=== PATIENT | female | born 1950 | race Asian ===

== ENCOUNTER 2024-01-31 06:26 | Day surgery (SDC) | payer OTHER ==
[~2024-01-31] VITALS: Ht 162.6 cm; Wt 72.7 kg
[2024-01-31] MEDS ORDERED: BENZOCAINE 20% 50 MCG/SPRAY 57 GM TP ONE (06:27)
[2024-01-31] MEDS ORDERED: LIDOCAINE 2% 11 ML JELLY TP ONE (06:27)
[2024-01-31] MEDS ORDERED: ALBUTEROL SULFATE 2.5 MG/0.5 ML NEB SOLUTION NEB ONE (06:27)
[2024-01-31] MEDS ORDERED: LIDOCAINE 4% 50 ML SOLUTION TP ONE (06:27)
[2024-01-31] MEDS ORDERED: SODIUM CHLORIDE 0.9% 1,000 ML IV ONE (07:00)
[2024-01-31] MEDS ORDERED: EPINEPHrine 1:10,000 [1 MG/10 ML] SYRINGE ONE (07:44)
[2024-01-31] MEDS ORDERED: FLUMAZENIL 0.1 MG/ML 5 ML VIAL IVP ONE (07:45)
[2024-01-31] MEDS ORDERED: DiphenhydrAMINE HCL 50 MG/ML VIAL ONE (07:45)
[2024-01-31] MEDS ORDERED: NALOXONE HCL 0.4 MG/ML VIAL ONE (07:45)
[2024-01-31] MEDS ORDERED: SODIUM TETRADECYL SULFATE 3% 60 MG/2 ML VIAL IVP ONE (07:45)
[2024-01-31] MEDS ORDERED: ATROPINE SULFATE 0.1 MG/ML 10 ML SYRINGE IVP ONE (07:45)
[2024-01-31] MEDS ORDERED: MIDAZOLAM HCL 2 MG/2 ML VIAL ONE (07:46)
[2024-01-31] MEDS ORDERED: FentaNYL CITRATE PF 100 MCG/2 ML VIAL ONE (07:46)
[2024-01-31] MEDS: SODIUM CHLORIDE 0.9% 1,000 ML IV ONE (07:51)
[2024-01-31] MEDS ORDERED: ALEN70TA65 PO (08:44)
[2024-01-31] MEDS ORDERED: TAMO10TA45 PO (08:44)
[2024-01-31] MEDS ORDERED: LOSA-382 PO (08:44)
[2024-01-31 09:30] VITALS: PULSE 72; RESP 18; O2SAT 96
[2024-01-31] MEDS ORDERED: MethylPREDNISolone SOD SUCC 125 MG/2 ML VIAL ONE (09:59)
[2024-01-31] MEDS: MethylPREDNISolone SOD SUCC 125 MG/2 ML VIAL IVP ONE (10:23)
== END 2024-01-31 12:30 | disposition home or self-care (01) ==
LOC: SURGERY 06:26
PROVIDERS: ATTEND Internal Medicine Critical Care Medicine
DX: R05.3 Chronic cough (principal); R06.2 Wheezing; R49.0 Dysphonia; R04.2 Hemoptysis; R06.1 Stridor; J38.4 Edema of larynx; B37.0 Candidal stomatitis; I10 Essential (primary) hypertension; J45.909 Unspecified asthma, uncomplicated; Z79.01 Long term (current) use of anticoagulants; Z79.899 Other long term (current) drug therapy; Z98.818 Other dental procedure status; Z98.890 Other specified postprocedural states; Z91.013 Allergy to seafood
CPT/HCPCS: 31623; 87206; 87101; 87220; 87070; 88108; 31624; 71045; 87015; J3010; J2250; J2919; J0171; J0461; J1200; J2310; J3490; J7613; Z7610